=== PATIENT | female | born 1970 | race Caucasian/White ===

== ENCOUNTER 2016-12-01 15:37 | Emergency (ER) | payer OTHER ==
[~2016-12-01] VITALS: Ht 162.6 cm; Wt 117.9 kg
[2016-12-01] MEDS ORDERED: MINOCYCLINE HCL50 MG PO (17:29)
[2016-12-01] MEDS ORDERED: LOSARTAN POTAS100 MG PO (17:29)
[2016-12-01] MEDS ORDERED: PROZAC40 MG PO (17:30)
[2016-12-01] MEDS ORDERED: MIRAPEX1.5 MG PO (17:30)
[2016-12-01] MEDS ORDERED: XANAX0.5 MG PO (17:31)
[2016-12-01] MEDS ORDERED: LASIX20 MG PO (17:31)
[2016-12-01] MEDS ORDERED: KLOR-CON M1010 MEQ PO (17:31)
[2016-12-01] MEDS ORDERED: TOPROL XL100 MG PO (17:31)
[2016-12-01] MEDS ORDERED: ATIVAN0.5 MG PO (17:32)
[2016-12-01] MEDS ORDERED: LITHIUM CARBON300 MG PO (17:32)
[2016-12-01] MEDS ORDERED: NORCO 325-5 MG1 TAB PO (17:32)
== END 2016-12-01 17:25 | disposition short-term general hospital (02) ==
LOC: ER 15:37
DX: R55 Syncope and collapse (principal); S00.03XA Contusion of scalp, initial encounter; Z79.899 Other long term (current) drug therapy; X58.XXXA Exposure to other specified factors, initial encounter